=== PATIENT | female | born 1960 | race Caucasian/White ===

== ENCOUNTER 2016-11-02 12:11 | Emergency (ER) | payer BC, MEDICARE ==
[2016-11-02] MEDS ORDERED: Ondansetron INJ* 2 MG/ML VIAL IV ONE ×2 (13:32→17:20)
[2016-11-02] MEDS ORDERED: HYDROmorphone* 1 MG/ML 1 ML SYR IV ONE ×2 (13:32→17:20)
[2016-11-02] MEDS ORDERED: NS 0.9% 1000 ML* 1,000 ML IV ONE ×2 (13:32→17:20)
[2016-11-02 13:44] LABS: Hematocrit 39 % (35-47); Hemoglobin 12.7 g/dl (12.0-16.0); Mean Corpuscular HGB Conc 33 g/dl (31-36); Mean Corpuscular Hemoglobin 25 pg (27-31); Mean Corpuscular Volume 77 fL (80-97); Mean Platelet Volume 7 um3 (7.4-10.4); Red Blood Count 5.05 10^6/ul (4.0-5.4); Red Cell Distribution Width 15 % (10.5-15); White Blood Count 7.8 10^3/ul (3.5-10.8)
[2016-11-02 13:55] LABS: Albumin 3.9 g/dL (3.2-5.2); BUN/Creatinine Ratio 19.6 (8-20); Calcium 9.7 mg/dL (8.6-10.3); EGFR African American 160.4 (>60); EGFR Non-African American 124.7 (>60); Globulin 3.4 g/dL (2-4); Total Bilirubin 0.4 mg/dL (0.2-1.0); Total Protein 7.3 g/dL (6.4-8.9)
--- NOTE | 2016-11-02 14:34 | RAD ---
HISTORY: Right upper quadrant pain COMPARISONS: None TECHNIQUE: Multiple transverse and longitudinal ultrasound images were obtained of the right upper quadrant of the abdomen using grayscale and color Doppler imaging. FINDINGS: LIVER: The liver is diffusely echogenic and coarse in echotexture, with decreased acoustic transmission. The liver is otherwise normal in shape, size, and contour. There is normal hepatopedal flow of the portal vein on Doppler imaging. BILIARY TREE: There is no intrahepatic or extrahepatic biliary dilatation. The common duct measures 0.3 cm. GALLBLADDER: The gallbladder is well-visualized. There is no cholelithiasis, gallbladder wall thickening, pericholecystic fluid, or sonographic [place] sign. PANCREAS: The pancreas is obscured by overlying bowel gas. RIGHT KIDNEY: The right kidney is normal in shape, size, contour, and echogenicity. There is no hydronephrosis or nephrolithiasis. The right kidney measures 12 x 5.4 x 5.4 cm. AORTA AND IVC: The aorta and IVC are unremarkable. FLUID: There are no pleural effusions. There is no free fluid within the hepatorenal recess. OTHER FINDINGS: None. IMPRESSION: FATTY INFILTRATION OF THE LIVER
[2016-11-02] MEDS ORDERED: Sucralfate TAB* 1 GM PO ONE (15:22)
[2016-11-02] MEDS ORDERED: Pantoprazole IV* 40 MG IV ONE (15:22)
--- NOTE | 2016-11-02 18:32 | RAD ---
CLINICAL HISTORY: Upper abdominal pain COMPARISON: April 20, 2012, ultrasound dated November 02, 2016 TECHNIQUE: Multiple contiguous axial CT scans were obtained of the abdomen and pelvis, without intravenous contrast enhancement. Coronal and sagittal multiplanar reformations are submitted for review. Oral contrast was not administered. FINDINGS: The study is limited by the lack of intravenous contrast. This limits evaluation of the solid organs and vasculature. LUNG BASES: The lung bases are clear. LIVER: The liver is normal in shape, size, contour, and attenuation. BILE DUCTS: There is no intrahepatic or extrahepatic biliary dilatation. GALLBLADDER: The gallbladder is normal, without pericholecystic inflammatory change. PANCREAS: The pancreas is normal, without mass or ductal dilatation. SPLEEN: Normal in size and appearance. UPPER GI TRACT: Evaluation of the gastrointestinal tract is limited by incomplete gastric distention. There is postsurgical change to the upper GI tract. SMALL BOWEL AND MESENTERY: The small bowel is normal in contour, course, and caliber. There is no obstruction or dilatation. COLON: The colon is normal in contour, course, caliber. There is no pericolonic inflammatory change. ADRENALS: Normal bilaterally. KIDNEYS: The kidneys are normal in shape, size, contour, and axis. There is no hydronephrosis or nephrolithiasis. BLADDER: The bladder is smooth in contour. PELVIC ORGANS: Evaluation is limited by streak artifact from a left hip arthroplasty. AORTA: The aorta is normal. IVC: Unremarkable LYMPH NODES: There is no lymphadenopathy by size criteria. ABDOMINAL WALL: There is no evidence for abdominal wall hernia. BONES AND SOFT TISSUES: Degenerative changes are noted of the spine. The patient is status post left hip arthroplasty. OTHER: None IMPRESSION: UNREMARKABLE NONCONTRAST CT OF THE ABDOMEN AND PELVIS
[2016-11-02 19:12] VITALS: BP 144/73
--- NOTE | 2016-11-02 20:39 | ED ---
Hilda Aguilera Thomas, scribed for Jordan Jacques MD on 11/02/16 at 1307 . Abdominal Pain/Female - HPI Summary HPI Summary: The pt is a 56 y/o F presenting to the ED c/o upper abd pain that began 7 days ago. The pain is intermittent and worsened yesterday night. The pain is described as stabbing. The pain is rated 10/10. The pain is aggravated by food and alleviated by nothing. The patient has not treated the pain with Tylenol. Pt additionally c/o nausea and vomiting. Pt denies diarrhea. PMHx: thyroid disease, insomnia. PSHx: gastric bypass, hernia repair, R hip replacement. SHx: no smoking, occasional alcohol use, no illicit drug use. FHx: gallstones. - History of Current Complaint Chief Complaint: EDAbdPain Stated Complaint: ABD PAIN, VOMITING Time Seen by Provider: 11/02/16 13:03 Hx Obtained From: Patient, Family/Die Repairer Stamping - mother in room Onset/Duration: Lasting Weeks - 1, Still Present Timing: Intermittent Episode Lasting Severity Currently: Severe Pain Intensity: 10 Pain Scale Used: 0-10 Numeric Location: Other - upper Character: Other: - Stabbing Aggravating Factor(s): Food Alleviating Factor(s): Nothing Associated Signs and Symptoms: Positive: Nausea, Vomiting. Negative: Diarrhea Allergies/Adverse Reactions: Allergies Allergy/AdvReac Type Severity Reaction Status Date / Time Ciprofloxacin Allergy Intermediate Nausea And Verified 12/21/15 06:27 Vomiting PMH/Surg Hx/FS Hx/Imm Hx Previously Healthy: No Endocrine/Hematology History: Reports: Hx Thyroid Disease Denies: Hx Anticoagulant Therapy, Hx Diabetes Cardiovascular History: Denies: Hx Congestive Heart Failure, Hx Hypertension Respiratory History: Reports: Other Respiratory Problems/Disorders - INSOMNIA R/ T PAIN IN LEFT KNEE AND LEFT HIP GI History: Denies: Other GI Disorders History: Denies: Hx Renal Disease Musculoskeletal History: Reports: Hx Arthritis Sensory History: Reports: Hx Contacts or Glasses Denies: Hx Hearing Aid Opthamlomology History: Reports: Hx Contacts or Glasses - Cancer History Hx Chemotherapy: No Hx Radiation Therapy: No - Surgical History Surgery Procedure, Year, and Place: VENTRAL HERNIA, GASTRIC BYPASS; L HIP REPLACEMENT Hx Anesthesia Reactions: No Infectious Disease History: No Infectious Disease History: Denies: Traveled Outside the [place] in Last 30 Days - Family History Known Family History: Positive: Other - POS: gallstones - Social History Alcohol Use: Occasionally Substance Use Type: Reports: None Smoking Status (MU): Never Smoked Tobacco Review of Systems Negative: Fever Positive: Abdominal Pain - upper, intermitent, onset 1 week ago, worsened with food, stabbing, Vomiting, Nausea. Negative: Diarrhea All Other Systems Reviewed And Are Negative: Yes Physical Exam Triage Information Reviewed: Yes Vital Signs On Initial Exam: Initial Vitals Temp Pulse Resp BP Pulse Ox 97.3 F 80 20 166/98 96 11/02/16 12:19 11/02/16 12:19 11/02/16 12:19 11/02/16 12:19 11/02/16 12:19 Vital Signs Reviewed: Yes Appearance: Positive: Well-Appearing, No Pain Distress, Well-Nourished Skin: Positive: Warm, Skin Color Reflects Adequate Perfusion, Dry Head/Face: Positive: Normal Head/Face Inspection Eyes: Positive: Normal ENT: Positive: Normal ENT inspection Neck: Positive: Supple, Nontender Respiratory/Lung Sounds: Positive: Clear to Auscultation, Breath Sounds Present Cardiovascular: Positive: RRR Abdomen Description: Positive: Soft, Other: - She is tender to her epigastrum and RUQ Bowel Sounds: Positive: Present Musculoskeletal: Positive: Normal Neurological: Positive: Normal Psychiatric: Positive: Normal, Affect/Mood Appropriate - Shine Coma Scale Coma Scale Total: 15 Diagnostics - Vital Signs Vital Signs Temp Pulse Resp BP Pulse Ox 11/02/16 13:00 97.7 F 84 18 143/100 96 11/02/16 12:19 97.3 F 80 20 166/98 96 - Laboratory Lab Results: Lab Results 11/02/16 11/02/16 Range/Units 13:20 13:20 WBC 7.8 (3.5-10.8) 10^3/ul RBC 5.05 (4.0-5.4) 10^6/ul Hgb 12.7 (12.0-16.0) g/dl Hct 39 (35-47) % MCV 77 L (80-97) fL MCH 25 L (27-31) pg MCHC 33 (31-36) g/dl RDW 15 (10.5-15) % Plt Count 291 (150-450) 10^3/ul MPV 7 L (7.4-10.4) um3 Neut % (Auto) 64.7 (38-83) % Lymph % (Auto) 28.0 (25-47) % Luna % (Auto) 5.1 (1-9) % Eos % (Auto) 1.4 (0-6) % Baso % (Auto) 0.8 (0-2) % Absolute Neuts (auto) 5.1 (1.5-7.7) 10^3/ul Absolute Lymphs (auto) 2.2 (1.0-4.8) 10^3/ul Absolute Monos (auto) 0.4 (0-0.8) 10^3/ul Absolute Eos (auto) 0.1 (0-0.6) 10^3/ul Absolute Basos (auto) 0.1 (0-0.2) 10^3/ul Absolute Nucleated RBC 0 10^3/ul Nucleated RBC % 0 Sodium 135 (133-145) mmol/L Potassium 4.0 (3.5-5.0) mmol/L Chloride 104 (101-111) mmol/L Carbon Dioxide 24 (22-32) mmol/L Anion Gap 7 (2-11) mmol/L BUN 10 (6-24) mg/dL Creatinine 0.51 (0.51-0.95) mg/dL Est GFR ( Amer) 160.4 (>60) Est GFR (Non-Af Amer) 124.7 (>60) BUN/Creatinine Ratio 19.6 (8-20) Glucose 106 H (70-100) mg/dL Calcium 9.7 (8.6-10.3) mg/dL Total Bilirubin 0.40 (0.2-1.0) mg/dL AST 16 (13-39) U/L ALT 11 (7-52) U/L Alkaline Phosphatase 74 (34-104) U/L Total Protein 7.3 (6.4-8.9) g/dL Albumin 3.9 (3.2-5.2) g/dL Globulin 3.4 (2-4) g/dL Albumin/Globulin Ratio 1.1 (1-3) Result Diagrams: 11/02/16 13:20 11/02/16 13:20 Lab Statement: Any lab studies that have been ordered have been reviewed, and results considered in the medical decision making process. - CT CT Abd/Pel CT Interpretation: No Acute Changes - UNREMARKABLE NONCONTRAST CT OF THE ABDOMEN AND PELVIS CT Interpretation Completed By: Radiologist - Additional Comments Diagnostic Additional Comments: US Gallbladder. Interpreted by radiologist. Impression: fatty infiltration of liver. Re-Evaluation - Re-Evaluation First Eval Re-Evaluation Time: 15:22 Change: Unchanged Comment: She is not feeling any better. Abdominal Pain Fem Course/Dx - Course Course Of Treatment: Ms. Kahn presented with 7 days of intermittent pain in the epigastric region. Her labs were all normal as was an U/S of her GB. GI medications helped her some and a noncontrasted CT was negative. Given her remote Gastric Bypass, she may need a contrasted DT if not improved. After 7 days and normal labs and CT, I doubt that this represents hernia. - Diagnoses Provider Diagnoses: Epigastric pain Discharge - Discharge Plan Condition: Stable Disposition: HOME Patient Education Materials: Epigastric Pain (ED) Referrals: Mario Plummer MD [Primary Care Provider] - 3 Days The documentation as recorded by the Hilda guzman Thomas accurately reflects the service I personally performed and the decisions made by me, Jordan Jacques MD.
== END 2016-11-02 19:12 | disposition home or self-care (01) ==
LOC: ED 12:11
DX: R10.13 Epigastric pain (principal); R11.2 Nausea with vomiting, unspecified; K76.0 Fatty (change of) liver, not elsewhere classified; E07.9 Disorder of thyroid, unspecified; G47.00 Insomnia, unspecified; Z98.84 Bariatric surgery status; Z96.642 Presence of left artificial hip joint; Z88.1 Allergy status to other antibiotic agents
CPT/HCPCS: 36415; 74176; 76705; 80053; 85025; 96361; 96374; 96375; 96376; 99283; A9270-GY; J1170; J2405

== ENCOUNTER 2017-07-11 12:58 | Emergency (ER) | payer BC, MEDICARE ==
[2017-07-11] MEDS ORDERED: diPHENhydraMINE IV* 50 MG in NS 0.9% 50 ML* 50 ML IVPB ONE (13:33)
[2017-07-11] MEDS ORDERED: Metoclopramide IV* 5 MG/ML 2 ML VIAL IV ONE (13:33)
[2017-07-11] MEDS ORDERED: NS 0.9% 1000 ML* 1,000 ML IV ONE (13:33)
[2017-07-11] MEDS ORDERED: diPHENhydraMINE IV* 50 MG/ML 1 ml VIAL (BENADRYL) IV ONE (13:33)
--- NOTE | 2017-07-11 13:55 | RAD ---
HISTORY: Headache COMPARISONS: None TECHNIQUE: Multiple contiguous axial CT scans were obtained of the head without intravenous contrast. FINDINGS: HEMORRHAGE/INFARCT: There is no hemorrhage or acute infarct. MASSES/SHIFT: There is no mass or shift. EXTRA-AXIAL SPACES: There are no extra-axial fluid collections. SULCI AND VENTRICLES: The sulci and ventricles are normal in size and position for the patient's stated age. CEREBRUM: There are no focal parenchymal abnormalities. BRAINSTEM: There are no focal parenchymal abnormalities. CEREBELLUM: There are no focal parenchymal abnormalities. VESSELS: The vessels are grossly normal. PARANASAL SINUSES: The paranasal sinuses are clear. ORBITS: The orbits are unremarkable. BONES AND SOFT TISSUE: No bone or soft tissue abnormalities are noted. OTHER: None IMPRESSION: NO ACUTE INTRACRANIAL PATHOLOGY.
[2017-07-11 14:26] LABS: INR 0.97 (0.77-1.02)
[2017-07-11 14:33] LABS: EGFR Non-African American 109.3 (>60)
[2017-07-11 14:40] LABS: ABS Basophils 0 10^3/ul (0-0.2); ABS Eosinophils 0.1 10^3/ul (0-0.6); ABS Lymphocytes 2.2 10^3/ul (1.0-4.8); ABS Monocytes 0.3 10^3/ul (0-0.8); ABS Neutrophils 3.9 10^3/ul (1.5-7.7); ABS Nucleated RBC 0 10^3/ul; Eosinophil % 1.7 % (0-6); Hematocrit 41 % (35-47); Hemoglobin 13.6 g/dl (12.0-16.0); Lymphocyte % 33.1 % (25-47); Mean Corpuscular HGB Conc 34 g/dl (31-36); Mean Corpuscular Hemoglobin 26 pg (27-31); Mean Corpuscular Volume 77 fL (80-97); Mean Platelet Volume 6.7 um3 (7.4-10.4); Nucleated Red Blood Cells % 0; Platelet Count 302 10^3/ul (150-450); Red Blood Count 5.25 10^6/ul (4.0-5.4); Red Cell Distribution Width 15 % (10.5-15); White Blood Count 6.6 10^3/ul (3.5-10.8)
[2017-07-11] MEDS ORDERED: Ketorolac INJ* 30 MG/ML 1 ML VIAL IV PUSH ONE (15:41)
[2017-07-11 16:36] VITALS: BP 118/79
--- NOTE | 2017-07-11 18:32 | ED ---
Carmen Aguilera Julia, scribed for Gage Garcia MD on 07/11/17 at 1336 . Headache - HPI Summary HPI Summary: This patient is a 57 year old F presenting to [facility] with a chief complaint of headache and burst blood vessel in her left eye since last night. [facility] where they recommended she be sent to the ED by ambulance but she refused. She states prior to her visit to [facility] she passed out due to dizziness. She denies falling. Patient reports frontal headache that radiates behind ears and neck described as pressure sensation. Pt c/o photophobia and dizziness. Patient denies CP, SOB, visual changes, and cough. The patient rates the pain 8/10 in severity. Pt denies frequent headaches but reports that she is under a lot of stress lately. Medications reviewed with pt. - History Of Current Complaint Chief Complaint: EDEyeProblem Stated Complaint: HEADACHE Time Seen by Provider: 07/11/17 13:10 Hx Obtained From: Patient Onset/Duration: Started days ago Currently Pain Is: Current Pain Scale(0-10)= - 8 Timing: Constant Character: Pressure - "exploding" Radiates to: behind ears and neck Aggravating Factor: Bright Lights Associated Signs And Symptoms: Dizziness, Neck Pain, Other (Noted In Comments) - blood vessel in eye - Allergies/Home Medications Allergies/Adverse Reactions: Allergies Allergy/AdvReac Type Severity Reaction Status Date / Time ciprofloxacin Allergy Nausea And Verified 07/11/17 12:59 Vomiting PMH/Surg Hx/FS Hx/Imm Hx Endocrine/Hematology History: Reports: Hx Thyroid Disease Denies: Hx Anticoagulant Therapy, Hx Diabetes Cardiovascular History: Denies: Hx Congestive Heart Failure, Hx Hypertension Respiratory History: Reports: Other Respiratory Problems/Disorders - INSOMNIA R/ T PAIN IN LEFT KNEE AND LEFT HIP GI History: Denies: Other GI Disorders History: Denies: Hx Renal Disease Musculoskeletal History: Reports: Hx Arthritis Sensory History: Reports: Hx Contacts or Glasses Denies: Hx Hearing Aid Opthamlomology History: Reports: Hx Contacts or Glasses - Cancer History Hx Chemotherapy: No Hx Radiation Therapy: No - Surgical History Surgery Procedure, Year, and Place: VENTRAL HERNIA, GASTRIC BYPASS; L HIP REPLACEMENT Hx Anesthesia Reactions: No Infectious Disease History: No Infectious Disease History: Denies: Traveled Outside the [place] in Last 30 Days - Family History Known Family History: Positive: Other - CA, negative - aneurysm - Social History Alcohol Use: Occasionally Substance Use Type: Reports: None Smoking Status (MU): Never Smoked Tobacco Review of Systems Positive: Photophobia, Other - burst blood vessel left eye. Negative: Blurred Vision Negative: Chest Pain Negative: Shortness Of Breath, Cough Positive: Myalgia - neck pain Neurological: Other - dizziness Positive: Headache, Syncope All Other Systems Reviewed And Are Negative: Yes Physical Exam - Summary Physical Exam Summary: GENERAL: Patient is a well developed and nourished F who is lying comfortable in the stretcher. Patient is not in any acute respiratory distress. HEAD AND FACE: Normocephalic EYES: PERRLA, EOMI x 2 left subconjunctival hemorrhagic over left medial aspect EARS: Hearing grossly intact. MOUTH: Oropharynx within normal limits. NECK: Supple, trachea is midline, no adenopathy, no JVD, no carotid bruit. CHEST: Symmetric, no tenderness at palpation LUNGS: Clear to auscultation bilaterally. No wheezing or crackles. CVS: Regular rate and rhythm, S1 and S2 present, no murmurs or gallops appreciated. ABDOMEN: Soft, non-tender. Bowel sounds are normal. No abdominal abnormal pulsations. EXTREMITIES: Full ROM in all major joints, no edema, no cyanosis or clubbing. NEURO: Alert and oriented x 3. No acute neurological deficits. Speech is normal and follows commands. Cranial nerves 2-12 grossly intact, no dysmetria finger to nose, SKIN: Dry and warm Triage Information Reviewed: Yes Vital Signs On Initial Exam: Initial Vitals Temp Pulse Resp BP Pulse Ox 96.2 F 84 16 155/98 100 07/11/17 13:01 07/11/17 13:01 07/11/17 13:01 07/11/17 13:01 07/11/17 13:01 Vital Signs Reviewed: Yes Diagnostics - Vital Signs Vital Signs Temp Pulse Resp BP Pulse Ox 07/11/17 13:01 96.2 F 84 16 155/98 100 - Laboratory Lab Results: Lab Results 07/11/17 07/11/17 07/11/17 Range/Units 14:04 14:04 14:04 WBC 6.6 (3.5-10.8) 10^3/ul RBC 5.25 (4.0-5.4) 10^6/ul Hgb 13.6 (12.0-16.0) g/dl Hct 41 (35-47) % MCV 77 L (80-97) fL MCH 26 L (27-31) pg MCHC 34 (31-36) g/dl RDW 15 (10.5-15) % Plt Count 302 (150-450) 10^3/ul MPV 6.7 L (7.4-10.4) um3 Neut % (Auto) 59.5 (38-83) % Lymph % (Auto) 33.1 (25-47) % [place] % (Auto) 5.0 (0-7) % Eos % (Auto) 1.7 (0-6) % Baso % (Auto) 0.7 (0-2) % Absolute Neuts (auto) 3.9 (1.5-7.7) 10^3/ul Absolute Lymphs (auto) 2.2 (1.0-4.8) 10^3/ul Absolute Monos (auto) 0.3 (0-0.8) 10^3/ul Absolute Eos (auto) 0.1 (0-0.6) 10^3/ul Absolute Basos (auto) 0 (0-0.2) 10^3/ul Absolute Nucleated RBC 0 10^3/ul Nucleated RBC % 0 INR (Anticoag Therapy) 0.97 (0.77-1.02) APTT 29.4 (26.0-36.3) seconds Sodium 137 L (139-145) mmol/L Potassium 3.8 (3.5-5.0) mmol/L Chloride 102 (101-111) mmol/L Carbon Dioxide 28 (22-32) mmol/L Anion Gap 7 (2-11) mmol/L BUN 10 (6-24) mg/dL Creatinine 0.57 (0.51-0.95) mg/dL Est GFR ( Amer) 140.6 (>60) Est GFR (Non-Af Amer) 109.3 (>60) BUN/Creatinine Ratio 17.5 (8-20) Glucose 87 (70-100) mg/dL Calcium 9.6 (8.6-10.3) mg/dL Total Bilirubin 0.40 (0.2-1.0) mg/dL AST 15 (13-39) U/L ALT 11 (7-52) U/L Alkaline Phosphatase 84 (34-104) U/L Troponin I 0.00 (<0.04) ng/mL Total Protein 7.8 (6.4-8.9) g/dL Albumin 4.2 (3.2-5.2) g/dL Globulin 3.6 (2-4) g/dL Albumin/Globulin Ratio 1.2 (1-3) Vitamin B12 150 L (180-914) pg/mL Result Diagrams: 07/11/17 14:04 07/11/17 14:04 Lab Statement: Any lab studies that have been ordered have been reviewed, and results considered in the medical decision making process. - CT Brain CT CT Interpretation Completed By: Radiologist - NO ACUTE INTRACRANIAL PATHOLOGY. ED Physician has reviewed this report. Headache Course/Dx - Course Course Of Treatment: 57 y/o F presenting to ED with headache and subconjuctival hemorrhage. Brain CT no evidence for intracrainal pathology. Discussed restults with pt. Pt feels better with IV fluids, benadryl, reglan, and toradol. Pt is hemodynomically stable upon discharge. Pt will follow up with neurology and optomology. - Diagnoses Provider Diagnoses: Headache, Subconjunctival hemorrhage Discharge - Sign-Out/Discharge Documenting (check all that apply): Discharge/Admit/Transfer - Discharge Plan Condition: Stable Disposition: HOME Prescriptions: diphenhydrAMINE HCl [Benadryl] 25 mg PO Q8HR 7 Days #20 capsule Metoclopramide TAB* [Reglan TAB*] 10 mg PO Q6H #14 tab Patient Education Materials: Subconjunctival Hemorrhage (ED), General Headache (ED) Referrals: Mario Plummer MD [Primary Care Provider] - Loreto Jaimes MD [Medical Doctor] - 1 Week (Follow up with Dr. Jaimes, neurology, regarding your symptoms today) Christiano Hernandez MD [Medical Doctor] - 3 Days (Follow up with Dr. Hernandez, optomolgy, regarding your subconjunctiva hemorrhage. ) - Billing Disposition and Condition Condition: STABLE Disposition: HOME The documentation as recorded by the Carmen guzman Julia accurately reflects the service I personally performed and the decisions made by , Gage Garcia MD.
== END 2017-07-11 16:36 | disposition home or self-care (01) ==
LOC: ED 12:58
DX: R51 Headache (principal); H11.32 Conjunctival hemorrhage, left eye; E07.9 Disorder of thyroid, unspecified
CPT/HCPCS: 36415; 70450; 80053; 82607; 84484; 85025; 85610; 85730; 96360; 96374; 96375; 96376; 99283; J1200; J1885; J2765

== ENCOUNTER 2019-01-13 15:31 | Inpatient (IN) | payer BC ==
[2019-01-13 16:00] LABS: ABS Eosinophils 0.1 10^3/ul (0-0.6); ABS Lymphocytes 1.7 10^3/ul (1.0-4.8); ABS Monocytes 0.3 10^3/ul (0-0.8); Eosinophil % 1.8 %; Hematocrit 43 % (35-47); Mean Corpuscular HGB Conc 33 g/dL (31-36); Mean Corpuscular Hemoglobin 26 pg (27-31); Mean Corpuscular Volume 80 fL (80-97); Mean Platelet Volume 6.7 fL (7.4-10.4); Nucleated Red Blood Cells % 0.1; Platelet Count 246 10^3/uL (150-450); Red Blood Count 5.31 10^6 /uL (3.70-4.87); Red Cell Distribution Width 15 % (10-15); White Blood Count 6.2 10^3/uL (3.5-10.8)
[2019-01-13 16:05] LABS: INR 1.03 (0.82-1.09)
[2019-01-13 16:18] LABS: Albumin 4.1 g/dL (3.2-5.2); Albumin/Globulin Ratio 1.1 (1-3); EGFR African American 117.4 (>60); EGFR Non-African American 97.1 (>60); Globulin 3.6 g/dL (2-4); Potassium 4.1 mmol/L (3.5-5.0); Total Bilirubin 0.4 mg/dL (0.2-1.0); Total Protein 7.7 g/dL (6.4-8.9)
[2019-01-13] MEDS ORDERED: Ondansetron INJ* 2 MG/ML VIAL IV ONE (18:04)
[2019-01-13] MEDS ORDERED: NS 0.9% 1000 ML** 1,000 ML IV ONE (18:04)
--- NOTE | 2019-01-13 18:04 | ED ---
HPI Chest Pain - HPI Summary HPI Summary: 58 yo female presents with epigastric pain. She tells me that for the last 4 days she has been trying a keto diet. Over the last week has noticed epigastric pain and burning that has been mild. Burping improves her pain. Last night her pain worsened and she was nauseous. This morning her pain continued and she tried to eat, but vomited after. Last tried to eat chicken around 1300 and vomited around 1320. She notes that she had "gastric bypass" over 30 years ago - unsure the name of it. She denies fever, chills, SOB, chest pain, dysuria, vaginal discharge or bleeding, diarrhea. - History of Current Complaint Chief Complaint: EDChestPainROMI Time Seen by Provider: 01/13/19 18:04 Hx Obtained From: Patient Initial Severity: Severe Current Severity: Severe Pain Intensity: 10 Pain Scale Used: 0-10 Numeric - Additional Pertinent History Primary Care Physician: SIGIFREDO - Allergy/Home Medications Allergies/Adverse Reactions: Allergies Allergy/AdvReac Type Severity Reaction Status Date / Time Penicillins Allergy Unknown Verified 01/14/19 00:37 Reaction Details ciprofloxacin AdvReac Intermediate Nausea And Verified 09/07/18 13:43 Vomiting codeine AdvReac Intermediate GI Upset Verified 09/07/18 13:43 Home Medications: Home Medications Levothyroxine TAB* [Synthroid TAB*] 50 mcg PO DAILY 01/13/19 [History Confirmed 01/13/19] Levothyroxine TAB* [Synthroid TAB*] 200 mcg PO DAILY 01/13/19 [History Confirmed 01/13/19] Meloxicam(NF) [Mobic(NF)] 15 mg PO DAILY 01/13/19 [History Confirmed 01/13/19] Phendimetrazine Tartrate 35 - 70 mg PO TID 01/13/19 [History Confirmed 01/13/19] traZODone TAB* [Desyrel TAB*] 200 mg PO BEDTIME 01/13/19 [History Confirmed ] PMH/Surg Hx/FS Hx/Imm Hx Endocrine/Hematology History: Reports: Hx Thyroid Disease Denies: Hx Anticoagulant Therapy, Hx Diabetes Cardiovascular History: Denies: Hx Congestive Heart Failure, Hx Hypertension, Hx Pacemaker/ICD Respiratory History: Reports: Other Respiratory Problems/Disorders - INSOMNIA R/ T PAIN IN LEFT KNEE AND LEFT HIP GI History: Denies: Other GI Disorders History: Denies: Hx Dialysis, Hx Renal Disease Musculoskeletal History: Reports: Hx Arthritis Sensory History: Reports: Hx Contacts or Glasses Denies: Hx Hearing Aid Opthamlomology History: Reports: Hx Contacts or Glasses Psychiatric History: Denies: Hx Panic Disorder - Cancer History Hx Chemotherapy: No Hx Radiation Therapy: No - Surgical History Surgery Procedure, Year, and Place: VENTRAL HERNIA, GASTRIC BYPASS; L HIP REPLACEMENT Hx Anesthesia Reactions: No Infectious Disease History: No Infectious Disease History: Denies: Traveled Outside the [place] in Last 30 Days - Family History Known Family History: Positive: Other - CA, negative - aneurysm - Social History Lives: With Family Alcohol Use: Rare Substance Use Type: Reports: None Smoking Status (MU): Never Smoked Tobacco Review of Systems Constitutional: Negative Eyes: Negative ENT: Negative Cardiovascular: Negative Respiratory: Negative Positive: Abdominal Pain, Vomiting, Nausea Genitourinary: Negative Musculoskeletal: Negative Skin: Negative Neurological: Negative Psychological: Normal All Other Systems Reviewed And Are Negative: No Physical Exam - Summary Physical Exam Summary: GENERAL: NAD. WDWN. No pain distress. SKIN: No rashes, sores, or open wounds. HEENT: Head: AT/NC Eyes: PERRLA. EOM intact. Conjunctiva clear without inflammation or discharge. Ears: Hearing grossly normal. TMs intact, no bulging, erythema, or edema. Nose: Nasal mucosa pink and moist. NTTP maxillary and frontal sinus. Throat: Posterior oropharynx without exudates, erythema, or tonsillar enlargement. Uvula midline. NECK: Supple. Nontender. No lymphadenopathy. CHEST: CTAB. No r/r/w. No accessory muscle use. Breathing comfortably and in no distress. CV: RRR. Pulses intact. Brisk cap refill. ABDOMEN: Soft. Moderate epigastric TTP. No distention or guarding. No organomegaly. No CVA tenderness. Bowel sounds present. No RUQ tenderness. MSK: FROM and 5/5 strength throughout. No edema. NEURO: Alert. PSYCH: Age appropriate behavior. Triage Information Reviewed: Yes Vital Signs On Initial Exam: Initial Vitals Temp Pulse Resp BP Pulse Ox 97.0 F 78 18 148/100 99 01/13/19 15:36 01/13/19 15:36 01/13/19 15:36 01/13/19 15:36 01/13/19 15:36 Vital Signs Reviewed: Yes Procedures - Sedation Patient Received Moderate/Deep Sedation with Procedure: No Diagnostics - Vital Signs Vital Signs Temp Pulse Resp BP Pulse Ox 01/13/19 15:36 97.0 F 78 18 148/100 99 - Laboratory Lab Results: Lab Results 01/13/19 01/13/19 01/13/19 Range/Units 15:49 15:49 15:49 WBC 6.2 (3.5-10.8) 10^3/uL RBC 5.31 H (3.70-4.87) 10^6 /uL Hgb 14.0 (12.0-16.0) g/dL Hct 43 (35-47) % MCV 80 (80-97) fL MCH 26 L (27-31) pg MCHC 33 (31-36) g/dL RDW 15 (10-15) % Plt Count 246 (150-450) 10^3/uL MPV 6.7 L (7.4-10.4) fL Neut % (Auto) 64.0 % Lymph % (Auto) 28.0 % [place] % (Auto) 5.6 % Eos % (Auto) 1.8 % Baso % (Auto) 0.6 % Absolute Neuts (auto) 4.0 (1.5-7.7) 10^3/ul Absolute Lymphs (auto) 1.7 (1.0-4.8) 10^3/ul Absolute Monos (auto) 0.3 (0-0.8) 10^3/ul Absolute Eos (auto) 0.1 (0-0.6) 10^3/ul Absolute Basos (auto) 0.0 (0-0.2) 10^3/ul Absolute Nucleated RBC 0.0 10^3/ul Nucleated RBC % 0.1 INR (Anticoag Therapy) 1.03 (0.82-1.09) Sodium 137 (135-145) mmol/L Potassium 4.1 (3.5-5.0) mmol/L Chloride 100 L (101-111) mmol/L Carbon Dioxide 29 (22-32) mmol/L Anion Gap 8 (2-11) mmol/L BUN 12 (6-24) mg/dL Creatinine 0.63 (0.51-0.95) mg/dL Est GFR ( Amer) 117.4 (>60) Est GFR (Non-Af Amer) 97.1 (>60) BUN/Creatinine Ratio 19.0 (8-20) Glucose 91 (70-100) mg/dL Calcium 10.0 (8.6-10.3) mg/dL Total Bilirubin 0.40 (0.2-1.0) mg/dL AST 13 (13-39) U/L ALT 11 (7-52) U/L Alkaline Phosphatase 72 (34-104) U/L Troponin I 0.00 (<0.04) ng/mL Total Protein 7.7 (6.4-8.9) g/dL Albumin 4.1 (3.2-5.2) g/dL Globulin 3.6 (2-4) g/dL Albumin/Globulin Ratio 1.1 (1-3) Result Diagrams: 01/13/19 15:49 01/13/19 15:49 Lab Statement: Any lab studies that have been ordered have been reviewed, and results considered in the medical decision making process. - CT ab/pelv wo CT Interpretation Completed By: Radiologist Summary of CT Findings: IMPRESSION: 1. Dilated debris-filled alimentary limb of the gastric bypass suggesting stenosis of the gastroenteric anastomosis. 2. Distal colonic diverticulosis. - EKG 1 EKG Comparison: Other Summary of EKG Findings: 80 bpm. NSR. 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 No STEMI as read by Dr. Badillo Re-Evaluation - Re-Evaluation First Eval Re-Evaluation Time: 19:02 Change: Improved Comment: Improved s/p GI cocktail, but still has epigastric pain and burning - but much less so Second Eval Re-Evaluation Time: 19:38 Change: Worse Comment: Could not tolerate po crackers or conrado ryan - vomited soon after. Will obtain CT ab/pelv Third Eval Comment: Unable to tolerate po contrast for CT. Will order IV only Chest Pain Course/Dx - Course Course Of Treatment: Suspect gastritis vs PUD vs gastric outlet obstruction. Pt given 1L NS, zofran, reglan, and benadryl. She was unable to tolerate po contrast despite medications and kept vomiting with anything po, thus CT with IV contrast only was ordered. Ct as above. Spoke with Dr. Murcia of GI and she recommends admission, PPI IV, and NPO - likely EGD in the morning. Discussed with pt and she is agreeable to this. Discussed case with Dr. Stinson of hospitalist team and she agrees to admit the pt. Discussed case with Dr. Blackwood and he agrees with plan of care. - Diagnoses Provider Diagnoses: Anastomotic stricture of stomach - Provider Notifications Discussed Care Of Patient With: Kelsey Murcia - Admit. Npo, PPI IV. Likely EGD in the morning. Discharge ED - Sign-Out/Discharge Documenting (check all that apply): Patient Departure - Discharge Plan Condition: Stable Disposition: ADMITTED TO [facility] - Billing Disposition and Condition Condition: STABLE Disposition: Admitted to [facility] - Attestation Statements Provider Attestation: the patient was seen by the midlevel provider, it was determined by them that it was not necessary for me to see the patient, I was available for consult during the patient's visit in the ED. I did not establish and patient-physician relationship. The chart however has been reviewed and I am signing in an administrative capacity.
[2019-01-13] MEDS ORDERED: Lidocaine 2% VISCOUS* 15 ML UDC PO ONE (18:23)
[2019-01-13] MEDS ORDERED: Famotidine TAB* 20 MG PO ONE (18:23)
[2019-01-13] MEDS ORDERED: Al Hydrox/Mg Hydrox/Simet LIQ* 30 ML UDC PO ONE (18:23)
[2019-01-13] MEDS ORDERED: Iohexol 300* (CONTRAST) 10 ML SDV IV ONE (19:38)
[2019-01-13] MEDS ORDERED: Metoclopramide IV* 5 MG/ML 2 ML VIAL IV ONE (19:45)
[2019-01-13] MEDS ORDERED: diPHENhydraMINE IV* 50 MG/ML 1 ml VIAL (BENADRYL) IV ONE (19:45)
[2019-01-13] MEDS ORDERED: Pantoprazole IV* 40 MG IV ONE (22:18)
[2019-01-14] MEDS: NS 0.9% 1000 ML** 1,000 ML IV SCH ×2 (01:28→17:21)
--- NOTE | 2019-01-14 01:43 | HP ---
CC: Dr. Plummer * HISTORY AND PHYSICAL: DATE OF ADMISSION: 01/14/19 PRIMARY CARE PROVIDER: Dr. Plummer. CHIEF COMPLAINT: Abdominal pain. HISTORY OF PRESENT ILLNESS: Ms. Kahn is a 58-year-old female who has a history of gastric bypass in the 80s, who states off and on over the years she has had intermittent problems with her stomach. However, over the last several months, it has become more frequent. She notes that after starting the keto diet this past Friday, she has had now 3 days of severe epigastric pain. She states that she has dramatically increased her veggie intake as well as her meat intake. Today she states that she is vomiting all day long. As soon as she tries to take anything, it would come right back up. In addition to the abdominal pain, she also felt as if her chest was tight and almost acidic or having indigestion. She did try Mylanta which did not help. She states her last bowel movement was this morning and it was normal. She does admit to some lightheadedness. PAST MEDICAL HISTORY: 1. Hypothyroidism. 2. Insomnia. PAST SURGICAL HISTORY: 1. Left hip replacement. 2. Gastric bypass. 3. Knee arthroscopy. 4. Ventral hernia repair. MEDICATIONS: 1. Phendimetrazine 35 to 70 mg p.o. t.i.d. 2. Vitamin B12 1000 mcg IM monthly. 3. Levothyroxine 250 mcg p.o. daily. 4. Meloxicam 15 mg p.o. daily. 5. Trazodone 200 mg p.o. q.h.s. ALLERGIES: PENICILLIN, CIPRO, AND CODEINE. FAMILY HISTORY: Dad had lung cancer. Mom had diabetes. The patient had a sister who just 2 months ago from esophageal cancer. SOCIAL HISTORY: The patient does not smoke, drinks alcohol rarely. She does home care. She is not . She has 1 child. She indicates that her son Derik Thakur would be her health care proxy. REVIEW OF SYSTEMS: The patient admits to chills and anorexia over the last few days. She admits to chest pain as above. No lower extremity edema. No cough. No shortness of breath, nausea, or vomiting. Abdominal pain as above. No hematochezia. No hematuria. No dysuria. No focal weakness or sensory loss. No sudden changes in vision. She does complain of food feeling as if it gets stuck in her low chest. No joint pains or muscle pains out of the ordinary. No rashes. No anxiety or depression. PHYSICAL EXAMINATION GENERAL: The patient is a well-developed, obese, middle aged female, seen sitting up in the stretcher in no acute distress. VITAL SIGNS: Blood pressure 116/78, pulse 66, respirations 15, temp 97, O2 sat 90% on room air. HEENT: Pupils are equal and round. Extraocular muscles are intact. Oropharynx is clear. Oral mucosa is moist. NECK: There is no submandibular, cervical, or supraclavicular adenopathy. PULMONARY: Lungs are clear to auscultation bilaterally. CARDIAC: Normal S1, S2. Regular rate and rhythm. There is no lower extremity edema. ABDOMEN: Bowel sounds present. Abdomen is soft, nondistended. She is markedly tender to slight palpation in the right greater than left upper quadrant. MUSCULOSKELETAL: There is no cyanosis or clubbing of the digits. There is full active range of motion of all 4 extremities. SKIN: Warm and dry. There are no rashes. NEURO: Cranial nerves II through XII are grossly intact. Sensation is intact to light touch throughout. Strength is 5/5 and symmetric both upper and lower extremities bilaterally. PSYCH: The patient is alert. She is oriented x3. Affect appears appropriate. LABORATORY DATA: WBC 6.2, hemoglobin 14.0, hematocrit 43, platelets 246, INR 1.03. Sodium 137, potassium 4.1, chloride 100, CO2 29, BUN 12, creatinine 0.63 , glucose 91, calcium 10, bilirubin 0.4, AST 13, ALT 11, alk phos 72. Troponin [address] abdomen and pelvis revealed dilated debris filled alimentary limb of the gastric bypass suggesting stenosis of the gastroenteric anastomosis. Distal colonic diverticulosis is noted. ASSESSMENT AND PLAN: Ms. Kahn is a 58-year-old female with a history of gastric bypass, who has had 3 days of severe abdominal pain with associated vomiting, who was found to have likely anastomotic stricture leading to outlet obstruction. 1. Probable anastomotic stricture with outlet obstruction. The patient will be admitted under observation status and made n.p.o. She will be seen tomorrow morning by GI for EGD. She will have p.r.n. Zofran for nausea and morphine for pain. 2. Hypothyroidism. I will convert her oral Synthroid to IV Synthroid 125 mcg IV daily. 3. Obesity. The patient's phendimetrazine will be held. 4. DVT prophylaxis: According to the Adult Thrombosis Prophylaxis Risk Factor Assessment Guide, the patient has a total risk factor score of 2, making her moderate risk. Ambulation will be utilized for DVT prophylaxis. 5. Code status is full. TIME SPENT: Fifty minutes was spent admitting this patient. [id number]/[facility] #: [id number] MTDD
[2019-01-14] MEDS: Morphine INJ* 2 MG/ML 1 ML SYRINGE (TWO MG - NEW SYRINGE VERSION) IV PRN ×3 (05:21→19:35)
[2019-01-14] MEDS: Levothyroxine INJ* 100 MCG/5 ML VIAL IV SCH (06:08)
--- NOTE | 2019-01-14 11:35 | PN ---
Subjective Date of Service: 01/14/19 Interval History: Patient felt her vomiting greatly improved since admission. When she recalled ,she said her abdominal pain has been persisting for months. And it got worse since Sat when she started Keto diet. Objective Active Medications: Sodium Chloride (Ns 0.9% 1000 Ml) 1,000 mls @ 100 mls/hr IV PER RATE [facility] Last Admin: 01/14/19 01:28 Dose: 100 mls/hr Levothyroxine Sodium (Synthroid Inj*) 100 mcg IV 0600 [facility] Last Admin: 01/14/19 06:08 Dose: 100 mcg Morphine Sulfate (Morphine Inj (Syringe))*) 2 mg IV Q4H PRN PRN Reason: PAIN - SEVERE Last Admin: 01/14/19 05:21 Dose: 2 mg Ondansetron HCl (Zofran Inj*) 4 mg IV Q6H PRN PRN Reason: NAUSEA Vital Signs - 8 hr 01/14/19 01/14/19 01/14/19 05:21 06:22 08:06 Temperature 97.6 F Pulse Rate 62 Respiratory 18 17 20 Rate Blood Pressure 104/81 (mmHg) O2 Sat by Pulse 98 Oximetry Oxygen Devices in Use Now: None Exam: Appearance: comfortably lying on bed Eyes: No Scleral Icterus Ears/Nose/Mouth/Throat: Clear Oropharnyx, Mucous Membranes Moist, Neck: NL Appearance and Movements; NL JVP, Trachea Midline Respiratory: Symmetrical Chest Expansion and Respiratory Effort, Clear to Auscultation Cardiovascular: NL Sounds; No Murmurs; No JVD, RRR Abdominal: epigastric tenderness on palpation, BS active Extremities: no edema Skin: no rashes. Result Diagrams: 01/13/19 15:49 01/13/19 15:49 Additional Lab and Data: Lab Results 01/13/19 01/13/19 01/13/19 Range/Units 15:49 15:49 15:49 WBC 6.2 (3.5-10.8) 10^3/uL RBC 5.31 H (3.70-4.87) 10^6 /uL Hgb 14.0 (12.0-16.0) g/dL Hct 43 (35-47) % MCV 80 (80-97) fL MCH 26 L (27-31) pg MCHC 33 (31-36) g/dL RDW 15 (10-15) % Plt Count 246 (150-450) 10^3/uL MPV 6.7 L (7.4-10.4) fL Neut % (Auto) 64.0 % Lymph % (Auto) 28.0 % [place] % (Auto) 5.6 % Eos % (Auto) 1.8 % Baso % (Auto) 0.6 % Absolute Neuts (auto) 4.0 (1.5-7.7) 10^3/ul Absolute Lymphs (auto) 1.7 (1.0-4.8) 10^3/ul Absolute Monos (auto) 0.3 (0-0.8) 10^3/ul Absolute Eos (auto) 0.1 (0-0.6) 10^3/ul Absolute Basos (auto) 0.0 (0-0.2) 10^3/ul Absolute Nucleated RBC 0.0 10^3/ul Nucleated RBC % 0.1 INR (Anticoag Therapy) 1.03 (0.82-1.09) Sodium 137 (135-145) mmol/L Potassium 4.1 (3.5-5.0) mmol/L Chloride 100 L (101-111) mmol/L Carbon Dioxide 29 (22-32) mmol/L Anion Gap 8 (2-11) mmol/L BUN 12 (6-24) mg/dL Creatinine 0.63 (0.51-0.95) mg/dL Est GFR ( Amer) 117.4 (>60) Est GFR (Non-Af Amer) 97.1 (>60) BUN/Creatinine Ratio 19.0 (8-20) Glucose 91 (70-100) mg/dL Calcium 10.0 (8.6-10.3) mg/dL Total Bilirubin 0.40 (0.2-1.0) mg/dL AST 13 (13-39) U/L ALT 11 (7-52) U/L Alkaline Phosphatase 72 (34-104) U/L Troponin I 0.00 (<0.04) ng/mL Total Protein 7.7 (6.4-8.9) g/dL Albumin 4.1 (3.2-5.2) g/dL Globulin 3.6 (2-4) g/dL Albumin/Globulin Ratio 1.1 (1-3) Assess/Plan/Problems-Billing Assessment: 58 y/o female with history of Erica-en Y gastric bypass surgery in 80s, presented with worsening vomiting after starting keto diet, found to have potential anastomosis stenosis on CT, plan for endoscopy today. - Patient Problems (1) Anastomotic stenosis of gastrojejunostomy Current Visit: Yes Status: Acute Code(s): K91.89 - OTH POSTPROCEDURAL COMPLICATIONS AND DISORDERS OF DGSTV SYS SNOMED Code(s): 960678890 Comment: - potential stenosis of gastroenteric anastomosis in CT scan - endoscopy and GI consult today - pain control with morphine prn, symptomatic tx (2) Obesity Current Visit: Yes Status: Acute Code(s): E66.9 - OBESITY, UNSPECIFIED SNOMED Code(s): 650280721 Comment: - bypass surgery in 80s, lost weight up to 50s initially but regained weight - on phendimetrazine, hold off for now, will restart once acute issues settled (3) DVT prophylaxis Current Visit: Yes Status: Acute Code(s): Z29.9 - ENCOUNTER FOR PROPHYLACTIC MEASURES, UNSPECIFIED SNOMED Code(s): 779138847 Status and Disposition: Inpatient Medicine. Attestation Documenting Resident: Maia Alejandro Supervising Physician: Eva Dial Attestation: This service has been performed in part by a resident under the direction of a teaching physician.I, Eva Dial, performed the service, or was physically present during the critical, or he portions of the service, furnished by the resident. I participated in the management of the patient.
[2019-01-14] MEDS: Ondansetron INJ* 2 MG/ML VIAL IV PRN (12:22)
[2019-01-14] MEDS ORDERED: Midazolam* 1 MG/ML 10 ML VIAL (10 MG) ONE (14:30)
[2019-01-14] MEDS ORDERED: fentaNYL* 50 MCG/ML 2 ML VIAL (100 MCG VIAL) ONE (14:30)
--- NOTE | 2019-01-14 15:34 | PN ---
Progress Note - Progress Note Date of Service: 01/14/19 Note: GI Brief EGD Note: E: nml G: retained food limits 90% of views. GJ anastomosis with erythema, like ulcer, but views poor. J: NML, able to pass scope without difficulty. Rec: Views poor. Poor tolerance to mod sed Will plan Erythromycin 250 IV x4 doses NPO Repeat EGD 01/15/19 with anesthesia assist. Suspect anastomotic ulcer. Limit narcotics. PPI IV BID Stefan Tobias DO 01/14/19 [id number]
[2019-01-14] MEDS ORDERED: NS 0.9% IVPB SCH (16:00)
[2019-01-14] MEDS ORDERED: ERYTHROMYCIN LACTOBIONATE IVPB SCH (16:00)
[2019-01-14] MEDS ORDERED: Erythromycin Lactobionate VIAL 250 MG in NS 0.9% 100 ML* 100 ML IVPB SCH (16:22)
[2019-01-14] MEDS: Erythromycin Lactobionate VIAL 250 MG in NS 0.9% 100 ML* 100 ML IVPB SCH (17:53)
--- NOTE | 2019-01-14 19:07 | CONS ---
CC: Dr. Plummer * CONSULTATION REPORT: DATE OF CONSULT: 01/14/19 REQUESTING PROVIDER: Dr. Meaghan Stinson. REASON FOR CONSULT: Abdominal pain, abnormal CT. HISTORY OF PRESENT ILLNESS: This is a pleasant 58-year-old female with past medical history of gastric bypass in the 1980s who has had intermittent abdominal pain over the years; however, it has become more frequent over the last few months. About 6 to 8 weeks ago, she began to take ibuprofen, Aleve, and meloxicam on a regular basis multiple times a day. She has had worsening of postprandial epigastric pain that can be severe, very sharp, up to 10/10 at times, waxes and wanes. This can be associated with vomiting. No dysphagia or odynophagia. She has tried Mylanta in the past which did not help, but has not tried any acid suppression therapy. She states she moves her bowels roughly every day to every other day. No black or blood in the stool. Has never had an upper endoscopy before. The remainder of the 14-point review of systems is grossly negative. PAST MEDICAL HISTORY: Hypothyroidism and insomnia. PAST SURGICAL HISTORY: Left hip replacement, gastric bypass, knee arthroscopy, ventral hernia repair. HOME MEDICATIONS: Include: 1. Phendimetrazine. 2. Vitamin B12. 3. Levothyroxine. 4. Meloxicam. 5. Trazodone. 6. Ibuprofen. ALLERGIES: Include PENICILLIN, CIPRO, AND CODEINE. FAMILY HISTORY: Paternal lung cancer. Sister with esophageal cancer. SOCIAL HISTORY: She does not smoke. Rare EtOH. REVIEW OF SYSTEMS: Remainder of the 14-point review of systems is grossly negative, except for as described in the HPI. PHYSICAL EXAM: Vital Signs: Blood pressure is 123/85, pulse is 71, respiratory rate is 16, 96% on room air, T-max is 98.2. In general, alert and oriented x3, in no acute distress. HEENT: Atraumatic, normocephalic. Pupils equal, round, reactive to light. Extraocular movements are intact. Conjunctivae are pink. Sclerae are anicteric. Cardiovascular: Regular rate and rhythm. S1, S2. Respiratory: Clear to auscultation bilaterally. Abdomen: Soft. Tenderness to palpation in the epigastrium. No guarding or rebound. Bowel sounds positive. Skin: Warm and dry. No rashes. Psych: Appropriate mood and affect. DIAGNOSTIC STUDIES/LAB DATA: Laboratory Data: Hemoglobin is 14, WBC count 6.2 , platelet count 246. INR 1.03. Sodium 137, potassium 4.1, chloride is 100, BUN is 12, creatinine 0.63, glucose 91, calcium 10. AST 13, ALT 11, alkaline phosphatase 72. She had a CT of the abdomen and pelvis on 01/13/19. This revealed dilated, debris- filled alimentary limb of the gastric bypass suggesting stenosis of the gastroenteric anastomosis and then distal colonic diverticulosis. ASSESSMENT AND PLAN: This is a 58-year-old female with abdominal pain, nausea, and history of gastric bypass. 1. Abdominal pain. The patient has been taking significant amounts of ibuprofen. I have concern for an anastomotic ulcer. I have discussed the risks , benefits, and alternatives and the patient would like to proceed with an upper endoscopy as indicated. We will continue with intravenous PPI therapy. If there is noninflammatory stenosis, this may be able to be dilated depending on how it looks. We will plan for EGD today. 2. History of gastric bypass. The differential includes anastomotic ulcer and stenosis among other things including malignancy. 3. Obesity. Counseled. [id number]/[facility] #: [id number] BRANDY
[2019-01-14] MEDS: Pantoprazole IV* 40 MG IV SCH (19:35)
[2019-01-14] MEDS ORDERED: traZODone TAB* 100 MG PO ONE (20:00)
[2019-01-15] MEDS: Erythromycin Lactobionate VIAL 250 MG in NS 0.9% 100 ML* 100 ML IVPB SCH ×3 (00:17→11:54)
[2019-01-15] MEDS: Morphine INJ* 2 MG/ML 1 ML SYRINGE (TWO MG - NEW SYRINGE VERSION) IV PRN ×4 (01:48→21:29)
[2019-01-15] MEDS: NS 0.9% 1000 ML** 1,000 ML IV SCH (06:00)
[2019-01-15] MEDS: Levothyroxine INJ* 100 MCG/5 ML VIAL IV SCH (06:00)
[2019-01-15] MEDS: Pantoprazole IV* 40 MG IV SCH ×2 (09:00→21:36)
[2019-01-15] MEDS: Ondansetron INJ* 2 MG/ML VIAL IV PRN ×2 (09:00→15:05)
[2019-01-15] MEDS ORDERED: Sodium Phosphate ADULT ENEMA* 118 ml bottle PR ONE (10:00)
[2019-01-15 10:45] LABS: Hematocrit 41 % (35-47); Hemoglobin 13.4 g/dL (12.0-16.0); Mean Corpuscular HGB Conc 33 g/dL (31-36); Mean Corpuscular Hemoglobin 27 pg (27-31); Mean Corpuscular Volume 81 fL (80-97); Red Blood Count 4.98 10^6 /uL (3.70-4.87); Red Cell Distribution Width 15 % (10-15); White Blood Count 8.1 10^3/uL (3.5-10.8)
[2019-01-15 10:55] LABS: Blood Urea Nitrogen 9 mg/dL (6-24); CO2 Carbon Dioxide 18 mmol/L (22-32); Chloride 104 mmol/L (101-111); EGFR African American 173.2 (>60); EGFR Non-African American 143.1 (>60); Glucose 75 mg/dL (70-100); Sodium 137 mmol/L (135-145)
[2019-01-15 10:59] LABS: Anion Gap 15 mmol/L (2-11)
[2019-01-15 11:43] LABS: ABS Eosinophils 0.2 10^3/ul (0-0.6); ABS Lymphocytes 2.1 10^3/ul (1.0-4.8); ABS Monocytes 0.5 10^3/ul (0-0.8); ABS Neutrophils 5.4 10^3/ul (1.5-7.7); Eosinophil % 1.9 %; Lymphocyte % 25.6 %; Nucleated Red Blood Cells % 0.3; Platelet Count Platelets clumped. 10^3/uL (150-450)
[2019-01-15] MEDS ORDERED: Lactated Ringers 1000 ML Bag* 1,000 ML IV SCH (13:00)
[2019-01-15] MEDS ORDERED: Buffered Lidocaine 1% SYRIN* 1 ML/SYRINGE INTRADERM ONE (13:30)
[2019-01-15] MEDS ORDERED: Naloxone* 0.4 MG/ML 1 ML VIAL IV PRN (16:26)
[2019-01-15] MEDS ORDERED: DiMENhydriNATE IV* 50 MG/ML VIAL IV PUSH PRN (16:26)
[2019-01-15] MEDS ORDERED: Ondansetron INJ* 2 MG/ML VIAL IV PRN (16:26)
[2019-01-15] MEDS ORDERED: Scopolamine 1.5 mg* PATCH TRANSDERM PRN (16:26)
[2019-01-15] MEDS ORDERED: fentaNYL* 50 MCG/ML 2 ML VIAL (100 MCG VIAL) IV PRN (16:26)
[2019-01-15] MEDS ORDERED: fentaNYL* 50 MCG/ML 2 ML VIAL (100 MCG VIAL) ONE (16:32)
[2019-01-15] MEDS ORDERED: Midazolam* 1 MG/ML 5 ML VIAL (5 MG) ONE (16:32)
--- NOTE | 2019-01-15 16:35 | PN ---
Subjective Date of Service: 01/15/19 Interval History: Patient complained of epigastric pain, as well as neck pain, chest pain, back pain. Noted EKG overnight done with her ongoing chest pain, which she described as muscle ache, non radiating. No EKG changes found. She complained of no BM for 2 days. Objective Active Medications: Dimenhydrinate (Dramamine Iv*) 25 mg IV PUSH ONCE PRN PRN Reason: NAUSEA/VOMITING Fentanyl Citrate (Fentanyl*) 50 mcg IV Q5M PRN PRN Reason: PAIN - MODERATE Sodium Chloride (Ns 0.9% 1000 Ml) 1,000 mls @ 100 mls/hr IV PER RATE [facility] Last Admin: 01/15/19 06:00 Dose: 100 mls/hr Lactated Ringer's (Lactated Ringers 1000 Ml Bag*) 1,000 mls @ 125 mls/hr IV PER RATE [facility] Levothyroxine Sodium (Synthroid Inj*) 100 mcg IV 0600 [facility] Last Admin: 01/15/19 06:00 Dose: 100 mcg Morphine Sulfate (Morphine Inj (Syringe))*) 2 mg IV Q4H PRN PRN Reason: PAIN - SEVERE Last Admin: 01/15/19 15:05 Dose: 2 mg Naloxone HCl (Narcan*) 0.08 mg IV Q2M PRN PRN Reason: severe induced resp depression Ondansetron HCl (Zofran Inj*) 4 mg IV Q6H PRN PRN Reason: NAUSEA Last Admin: 01/15/19 15:05 Dose: 4 mg Ondansetron HCl (Zofran Inj*) 4 mg IV ONCE PRN PRN Reason: NAUSEA/VOMITING Pantoprazole Sodium (Protonix Iv*) 40 mg IV BID [facility] Last Admin: 01/15/19 09:00 Dose: 40 mg Scopolamine (Transderm-Scop 1.5 Mg Patch*) 1 patch TRANSDERM Q72H PRN PRN Reason: Nausea/Vomiting Vital Signs - 8 hr 01/15/19 01/15/19 01/15/19 08:59 10:20 11:15 Temperature 98.4 F Pulse Rate 82 Respiratory 18 18 14 Rate Blood Pressure 144/78 (mmHg) O2 Sat by Pulse 99 Oximetry 01/15/19 01/15/19 15:05 15:30 Temperature 97.9 F Pulse Rate 82 Respiratory 16 16 Rate Blood Pressure 164/93 (mmHg) O2 Sat by Pulse 98 Oximetry Oxygen Devices in Use Now: None Exam: Appearance: comfortably lying on bed Eyes: No Scleral Icterus Ears/Nose/Mouth/Throat: Clear Oropharnyx, Mucous Membranes Moist, Neck: NL Appearance and Movements; NL JVP, Trachea Midline Respiratory: Symmetrical Chest Expansion and Respiratory Effort, Clear to Auscultation Cardiovascular: NL Sounds; No Murmurs; No JVD, RRR Abdominal: epigastric tenderness on palpation, BS active Extremities: no edema Result Diagrams: 01/15/19 10:25 01/15/19 11:52 Additional Lab and Data: Lab Results 01/13/19 01/13/19 01/13/19 Range/Units 15:49 15:49 15:49 WBC 6.2 (3.5-10.8) 10^3/uL RBC 5.31 H (3.70-4.87) 10^6 /uL Hgb 14.0 (12.0-16.0) g/dL Hct 43 (35-47) % MCV 80 (80-97) fL MCH 26 L (27-31) pg MCHC 33 (31-36) g/dL RDW 15 (10-15) % Plt Count 246 (150-450) 10^3/uL MPV 6.7 L (7.4-10.4) fL Neut % (Auto) 64.0 % Lymph % (Auto) 28.0 % Worth % (Auto) 5.6 % Eos % (Auto) 1.8 % Baso % (Auto) 0.6 % Absolute Neuts (auto) 4.0 (1.5-7.7) 10^3/ul Absolute Lymphs (auto) 1.7 (1.0-4.8) 10^3/ul Absolute Monos (auto) 0.3 (0-0.8) 10^3/ul Absolute Eos (auto) 0.1 (0-0.6) 10^3/ul Absolute Basos (auto) 0.0 (0-0.2) 10^3/ul Absolute Nucleated RBC 0.0 10^3/ul Nucleated RBC % 0.1 INR (Anticoag Therapy) 1.03 (0.82-1.09) Sodium 137 (135-145) mmol/L Potassium 4.1 (3.5-5.0) mmol/L Chloride 100 L (101-111) mmol/L Carbon Dioxide 29 (22-32) mmol/L Anion Gap 8 (2-11) mmol/L BUN 12 (6-24) mg/dL Creatinine 0.63 (0.51-0.95) mg/dL Est GFR ( Amer) 117.4 (>60) Est GFR (Non-Af Amer) 97.1 (>60) BUN/Creatinine Ratio 19.0 (8-20) Glucose 91 (70-100) mg/dL Calcium 10.0 (8.6-10.3) mg/dL Total Bilirubin 0.40 (0.2-1.0) mg/dL AST 13 (13-39) U/L ALT 11 (7-52) U/L Alkaline Phosphatase 72 (34-104) U/L Troponin I 0.00 (<0.04) ng/mL Total Protein 7.7 (6.4-8.9) g/dL Albumin 4.1 (3.2-5.2) g/dL Globulin 3.6 (2-4) g/dL Albumin/Globulin Ratio 1.1 (1-3) Assess/Plan/Problems-Billing Assessment: 58 y/o female with 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 - Patient Problems (1) Anastomotic stenosis of gastrojejunostomy Current Visit: Yes Status: Acute Code(s): K91.89 - OTH POSTPROCEDURAL COMPLICATIONS AND DISORDERS OF DGSTV SYS SNOMED Code(s): 339891749 Comment: - potential stenosis of gastroenteric anastomosis in CT scan - first endoscopy showing ulcer on anastomotic site, but limited due to food residual in stomach - repeat endoscopy today after iv erthromycin - iv ppi - pain control with morphine prn, symptomatic tx (2) Obesity Current Visit: Yes Status: Acute Code(s): E66.9 - OBESITY, UNSPECIFIED SNOMED Code(s): 920732599 Comment: - bypass surgery in 80s, lost weight up to 50s initially but regained weight - on phendimetrazine, hold off for now, will restart once acute issues settled (3) DVT prophylaxis Current Visit: Yes Status: Acute Code(s): Z29.9 - ENCOUNTER FOR PROPHYLACTIC MEASURES, UNSPECIFIED SNOMED Code(s): 670117009 Comment: - ambulatory Status and Disposition: Inpatient Medicine. Attestation Documenting Resident: Maia Alejandro Supervising Physician: Eva Dial Attending/Supervising Physician Comment: Case discussed with Dr. Tobias. Anastomotic ulcer found on EGD which was unable to be dilated. Plan for PPI and slow diet advancement likely limited to soft foods until time allows inflammation to decrease. Awaiting her return from PACU. Attestation: This service has been performed in part by a resident under the direction of a teaching physician.I, Eva Dial, performed the service, or was physically present during the critical, or he portions of the service, furnished by the resident. I participated in the management of the patient.
[2019-01-15] MEDS ORDERED: Propofol* 500 MG/50 ML BTL ONE (16:50)
[2019-01-15] MEDS ORDERED: Lidocaine 2% PF * 5 ML VIAL ONE (16:51)
--- NOTE | 2019-01-15 19:35 | PN ---
Progress Note - Progress Note Date of Service: 01/15/19 Note: GI Brief EGD Note: E: Nml Pouch: linear ulcer clean based. no bleeding. Bx for H. Pylori GJ anastomosis 1cm ulcer, clean based. Some inflammation around it, and slight luminal narrowing but still widely patent. Jejunum: normal Rec: Suspect anastomotic and pouch ulcer 2/2 NSAID NO NSAIDS. Tylenol fine. PPI BID [id number] Repeat egd in 3months time to assess for healing Liquids/soft diet for next week or two, avoid high fiber, stringy vegetables, vegetables with skin. Eat small frequent meals If ongoing symptoms/non healing, will need surgical evaluation for possible Re- Anastomosis. Full liquids today, can do soft 01/15. If tolerating can advance as tolerated with above caveats. Ok to d/c when tolerating. May be helpful to have carafate at d/c only as needed if having pain still. Does not help with healing. Stefan Tobias DO 01/15/191929
[2019-01-15] MEDS ORDERED: traZODone TAB* 100 MG PO ONE (22:00)
[2019-01-16] MEDS: NS 0.9% 1000 ML** 1,000 ML IV SCH (00:26)
[2019-01-16] MEDS: Morphine INJ* 2 MG/ML 1 ML SYRINGE (TWO MG - NEW SYRINGE VERSION) IV PRN (03:54)
[2019-01-16] MEDS: Levothyroxine INJ* 100 MCG/5 ML VIAL IV SCH (05:54)
[2019-01-16] MEDS ORDERED: Acetaminophen TAB* 325 MG PO PRN (06:03)
[2019-01-16] MEDS: Pantoprazole IV* 40 MG IV SCH (10:07)
[2019-01-16 12:06] VITALS: BP 152/90
[2019-01-16] MEDS ORDERED: traZODone TAB* 100 MG PO SCH (21:00)
--- NOTE | 2019-01-16 21:30 | PRO ---
CC: Mario Plummer MD * ESOPHAGOGASTRODUODENOSCOPY REPORT: DATE OF PROCEDURE: 01/15/19 - ROOM #[id number] PRIMARY CARE PHYSICIAN: Mario Plummer MD PROCEDURE PERFORMED: Complete esophagogastroduodenoscopy with biopsies. INDICATION FOR PROCEDURE: Abnormal CT, abdominal pain. MEDICATIONS GIVEN: Please see anesthesia service record. DESCRIPTION OF PROCEDURE: After the EGD procedure including the risks, benefits , and alternatives with the risks not limited to perforation, surgery, missed lesions, and/or were explained to the patient, written informed consent was obtained, IV medication was given, and a bite block was placed between the teeth. The adult Olympus gastroscope was then inserted into the patient's oropharynx, into the tubular esophagus. The tubular esophagus was normal in appearance. The scope was then advanced through the lower esophageal sphincter into the pouch. Pouch was about 5 to 6 cm in size. No retained debris was visualized at this time. Views were excellent. Anastomotic ulcer was appreciated at the GJ junction with some inflammatory stenosis, however, still widely patent. The anastomotic ulcer was about 1 cm in appearance, clean based. There was also a linear gastric pouch ulcer. I did take a biopsy to evaluate for H. pylori. The scope was then advanced into the jejunum. This was normal in appearance with the area visualized. The scope was then removed from the patient. She tolerated the procedure well. She returned to the recovery room in stable condition. IMPRESSION: 1. Complete esophagogastroduodenoscopy with biopsies. 2. Anastomotic ulcer 1 cm with slight inflammatory stenosis, but still widely patent. 3. Gastric pouch linear ulcer, also clean based. RECOMMENDATIONS: Discontinue all NSAIDs. Will need b.i.d. PPI therapy for 3 months' time. A repeat EGD in 3 months to determine healing. I would recommend liquid/soft diet for at least 2 weeks to allow this to heal. In addition, she can have Carafate, which will not help the healing per se, but can be used if she is having pain. If she notices pain or discomfort, I would recommend that she back her diet off to liquids and soft, which should go through this area with relative ease. If this area still not healing in 3 months, she will need a surgical evaluation for potential reanastomosis. However, I am hopeful that given the absence of NSAIDs, which was likely the contributing factor here that she will have a full recovery. [id number]/[facility] #: [id number] BRANDY
--- NOTE | 2019-01-16 21:47 | PRO ---
CC: Dr. Mario Wangura ESOPHAGOGASTRODUODENOSCOPY REPORT: DATE OF PROCEDURE: 01/14/19 PROCEDURE PERFORMED: Complete esophagogastroduodenoscopy. INDICATION FOR PROCEDURE: Abdominal pain, vomiting. MEDICATIONS GIVEN: Include: 1. 9 mg IV midazolam. 2. 100 mcg IV fentanyl. DESCRIPTION OF PROCEDURE: After the EGD procedure including the risks, benefits, and alternatives wi th the risks not limited to perforation, surgery, missed lesions, and/or were explained to the patient, written informed consent was obtained, IV medication was given, and a bite block was placed between the teeth. The adult Olympus gastroscope was then inserted into the patient's oropharynx into the tubular esophagus. The tubular esophagus was normal in appearance. The scope was then advanced to the lower esophageal sphincter into the gastric pouch. Over 75% to 85% of the pouch was obscured by fluid and retained debris. Despite vigorous washing in an attempt to pushing this into the jejun um, it was unsuccessful. The GJ junction was slightly evaluated. I was only able to see 10% to 15% of it. However, there was some erythema and a possible ulceration was visualized. I was able to pas s through into the jejunum with ease and the jejunal mucosa did appear normal. The scope was then re moved from the patient. She tolerated the procedure well. She returned to the recovery room in stab le condition. IMPRESSION: 1. Complete esophagogastroduodenoscopy. 2. Limited views secondary to retained food up to 75% to 85%. 3. Possible anastomotic ulceration. RECOMMENDATIONS: We will repeat EGD tomorrow after giving erythromycin to clear out the stomach. I will repeat it with anesthesia in case there was any retained debris that could be removed at that po int with a deeper level of sedation. [id number]/[facility] #: [id number]
--- NOTE | 2019-01-16 22:05 | DS ---
CC: Dr. Tobias; Dr. Plummer * DISCHARGE SUMMARY: DATE OF ADMISSION: 01/14/19 DATE OF DISCHARGE: 01/16/19 PRINCIPAL DISCHARGE DIAGNOSES: 1. Anastomotic ulcer. 2. Duodenal stricture. SECONDARY DISCHARGE DIAGNOSES: 1. History of Erica-en-Y. 2. Osteoarthritis. 3. Hypothyroidism. MEDICATIONS: 1. Vitamin B12 1000 mcg IM monthly. 2. Trazodone 200 mg q.h.s. 3. Synthroid 50 mcg daily. 4. Phendimetrazine 35 to 70 mg t.i.d. 5. Synthroid 200 mcg daily. 6. Pantoprazole 20 mg b.i.d. 7. Carafate 1 g t.i.d. p.r.n. discomfort. PHYSICAL EXAMINATION: Vital Signs: Temperature 97.2, heart rate 58, respiratory rate 18, pulse ox 93% on room air, blood pressure of 152/90. General: Alert, well- appearing, middle aged woman in no distress. She is well appearing. HEENT: Pupils equal, round and reactive to light. Oral mucosa is moist. No pharyngeal exudates. Neck: No JVP, no adenopathy. Chest : She is in a regular rate and rhythm, with no murmurs. Lungs: Her lungs are clear bilaterally. Abdomen: Soft, nontender and nondistended. No guarding or rebound. Incision is healed. No CVA tenderness. Extremities: No edema, rashes or ulcer. She has crepitus in her left knee. PERTINENT IMAGING: From this admission, an abdomen and pelvis CT on 01/13/19 showed dilated debris filled alimentary limb of the gastric bypass suggesting stenosis of the gastroenteric anastomosis and distal colonic diverticulosis. HOSPITAL COURSE BY PROBLEM: Anastomotic ulcer with stricture. Ms. Kahn was admitted with pain and obstructive symptoms and GI was consulted after the CT showed concerns for obstruction at the site of the prior Erica-en-Y, which was done in the 80s. Dr. Tobias performed an EGD on 01/15/19, which showed a 1-cm ulcer at the site of the anastomosis. Of note, Janis had been taking meloxicam for osteoarthritis, which was thought to be the cause of this ulcer. She was noted to have stenosis at the site also and due to inflammation this was unable to be dilated. Dr. Tobias recommended b.i.d. PPI and slow advancement of her diet likely with predominance of soft foods. She was returned to the floor and was started on soft foods, which she tolerated very well, had a good appetite and was anxious for discharge. She is being discharged to home on PPI b.i.d., Carafate p.r.n. discomfort and close GI followup. She is to discontinue meloxicam and she expresses understanding and will use Tylenol only. Should the inflammation and ulcer not resolve, she may need surgical evaluation of the anastomotic site, but Dr. Tobias plans to repeat the endoscopy on an outpatient basis. DISPOSITION: Ms. Kahn has been discharged to home on 01/16/19. She is to continue soft foods and slowly advance her diet as tolerated. She will follow up with Dr. Plummer and Dr. Tobias. CONDITION AT THE TIME OF DISCHARGE: Stable. [id number]/[facility] #: [id number] MTDD
== END 2019-01-16 13:05 | disposition home or self-care (01) | DRG 241 ==
LOC: ED 15:31 → MED 01-14 00:29 → OBSVTOIN 01-15 11:00
PROVIDERS: ADMIT Hospitalist; ATTEND Internal Medicine
PROC: 0DJ08ZZ Inspection of Upper Intestinal Tract, Via Natural or Artificial Opening Endoscopic (ICD-10-PCS; principal; 2019-01-14)
PROC: 0DD78ZX Extraction of Stomach, Pylorus, Via Natural or Artificial Opening Endoscopic, Diagnostic (ICD-10-PCS; 2019-01-15)
DX: K28.9 Gastrojejunal ulcer, unspecified as acute or chronic, without hemorrhage or perforation (principal); K31.5 Obstruction of duodenum; Z68.41 Body mass index [BMI] 40.0-44.9, adult; E03.9 Hypothyroidism, unspecified; G47.00 Insomnia, unspecified; Z96.642 Presence of left artificial hip joint; K57.30 Diverticulosis of large intestine without perforation or abscess without bleeding; E66.9 Obesity, unspecified; Z98.84 Bariatric surgery status; Z79.899 Other long term (current) drug therapy; Z88.5 Allergy status to narcotic agent; Z88.0 Allergy status to penicillin; Z88.8 Allergy status to other drugs, medicaments and biological substances; Z83.3 Family history of diabetes mellitus; Z80.1 Family history of malignant neoplasm of trachea, bronchus and lung; Z80.0 Family history of malignant neoplasm of digestive organs
CPT/HCPCS: 36415; 74177; 80048; 80053; 84484; 85025; 85610; 87077; 88305; 88342; 93005; 96374; 99156; 99157; 99284; A9270-GY; G0378; J1200; J1364; J2250; J2270; J2405; J2704; J2765; J3010; Q9967

== ENCOUNTER 2024-04-05 05:49 | Observation (INO) ==
[~2024-04-05 05:49] MED LIST: Metoclopramide 5 MG/ML VIAL (10 mg) IV PRN; NS 0.45% 1000 ml BAG 1,000 ML IV SCH; Naloxone 0.4 mg VIAL 0.4 mg/ml 1 ml VIAL IV PRN; Ondansetron 4 mg VIAL 2 MG/ML 2 ml VIAL IV PRN; fentaNYL 100 mcg/2 ml 50 MCG/ML VIAL IV PRN
[2024-04-05] MEDS ORDERED: ceFAZolin 2 GM PREMIX 2 GM/50 ML BAG ONE (06:13)
[2024-04-05] MEDS ORDERED: Tranexamic Acid 1 GM/100ML BAG 2,000 MG/200 ML BAG IV ONE (06:13)
[2024-04-05] MEDS ORDERED: Lidocaine 1% w EPI 1:100,000 MDV 50 ML VIAL ONE (06:22)
[2024-04-05] MEDS ORDERED: Vancomycin 1,000 MG VIAL ONE (06:23)
[2024-04-05 06:36] LABS: Rapid COVID-19 Molecular Undetected (Undetected)
[2024-04-05] MEDS ORDERED: Midazolam 2 mg/2 ml VIAL 1 mg/ml 2 ml VIAL (2 mg) ONE (07:06)
[2024-04-05] MEDS ORDERED: Propofol 10 MG/ML 20 ML BTL ONE ×2 (07:11→10:49)
[2024-04-05] MEDS ORDERED: fentaNYL 100 mcg/2 ml 50 MCG/ML VIAL ONE ×3 (07:12→12:48)
[2024-04-05] MEDS ORDERED: Dexamethasone IV 4 MG/ML VIAL 1 ml VIAL ONE (07:18)
[2024-04-05] MEDS ORDERED: ROPIVACAINE 5 MG/ML 30 ML BTL (0.5%) ONE (07:18)
[2024-04-05] MEDS ORDERED: Lidocaine 2% PF 10 ML AMP (OR) ONE (08:58)
[2024-04-05] MEDS ORDERED: ceFAZolin VIAL VIAL ONE (09:08)
[2024-04-05] MEDS ORDERED: Lactulose 30 ml UDC PO PRN (10:31)
[2024-04-05] MEDS ORDERED: Ondansetron ODT 4 mg TAB 4 MG TAB PO PRN (10:31)
[2024-04-05] MEDS ORDERED: Ondansetron 4 mg VIAL 2 MG/ML 2 ml VIAL IV PRN (10:31)
[2024-04-05] MEDS ORDERED: Calcium Carb (TUMS) 500 mg CHEW TAB PO PRN (10:31)
[2024-04-05] MEDS ORDERED: Magnesium Hydroxide LIQ 30 ML UDC PO PRN (10:31)
[2024-04-05] MEDS ORDERED: Ondansetron 4 mg VIAL 2 MG/ML 2 ml VIAL ONE ×2 (10:58→12:00)
[2024-04-05] MEDS: Ondansetron 4 mg VIAL 2 MG/ML 2 ml VIAL IV PRN (12:03)
[2024-04-05] MEDS: fentaNYL 100 mcg/2 ml 50 MCG/ML VIAL IV PRN (12:09)
[2024-04-05] MEDS: Lactated Ringers 1000 ml BAG 1,000 ML IV SCH ×3 (13:47→14:05)
[2024-04-05] MEDS: ceFAZolin *3* GM in NS PREMIX 3 GM/100 ML BAG IV SCH ×2 (13:47→18:48)
[2024-04-05] MEDS: Buffered Lidocaine 1% SYRIN 1 ml INTRADERM ONE ×2 (14:03→14:05)
[2024-04-05] MEDS: Acetaminophen IV 1 GM/100ML 1,000 MG/100 ML BAG IV ONE ×2 (14:03→14:05)
[2024-04-05] MEDS: Scopolamine 1 mg/72hr PATCH TRANSDERM ONE ×2 (14:04→14:05)
[2024-04-05] MEDS: Morphine 2 MG/ML SYRINGE IV PRN (14:15)
[2024-04-05] MEDS: Magnesium Hydroxide LIQ 30 ML UDC PO SCH (20:46)
[2024-04-06] MEDS: ceFAZolin *3* GM in NS PREMIX 3 GM/100 ML BAG IV SCH (06:36)
[2024-04-06 06:56] LABS: Hematocrit 37.5 % (35-45); Hemoglobin 13.3 g/dL (11.5-14.3); Mean Platelet Volume 6.8 fL (7.5-11.2); Platelet Count 264 10^3/uL (150-450)
[2024-04-06 07:04] LABS: Calcium 8.7 mg/dL (8.6-10.3); Creatinine, Serum 0.56 mg/dL (0.51-0.95); Potassium 4.2 mmol/L (3.5-5.0); eGFR CKD-EPI 101.8 (>60)
[2024-04-06 07:20] LABS: TSH Ultra Thyroid Stim Horm 7.57 mcIU/mL (0.34-5.60)
[2024-04-06] MEDS: Vitamin THERAPEUTIC TAB PO SCH (08:35)
[2024-04-07 05:33] LABS: Hematocrit 32.3 % (35-45); Hemoglobin 11.6 g/dL (11.5-14.3); Mean Platelet Volume 6.5 fL (7.5-11.2); Platelet Count 229 10^3/uL (150-450)
[2024-04-07 10:23] VITALS: BP 115/89
== END 2024-04-07 13:05 | disposition home or self-care (01) ==
LOC: SSU 05:49 → OR 05:49 → SUATTDRO 10:31
PROVIDERS: ADMIT Orthopaedic Surgery; ATTEND Orthopaedic Surgery